=== PATIENT | female | born 1995 | race Caucasian/White ===

== ENCOUNTER 2023-12-28 11:11 | Emergency (ER) | payer OTHER ==
[~2023-12-28] VITALS: Ht 165.1 cm; Wt 70.0 kg
[2023-12-28 11:14] VITALS: TEMP 98.2; O2SAT 97
[2023-12-28 12:15] VITALS: BP 151/106; PULSE 125; RESP 18
[2023-12-28] MEDS: LIDOCAINE HCL/PF 1% 10 MG/ML 5ML VIAL INFIL ONE (12:15)
[2023-12-28] MEDS: BACITRACIN ZINC OINT UDPKT TOP ONE (12:15)
[2023-12-28] MEDS: TETANUS, DIPHTHERIA, PERTUSSIS VAC/PF 0.5ML (>10YR OLD) IM ONE (12:15)
[2023-12-28] MEDS: IBUPROFEN 600MG TABLET PO ONE (12:15)
== END 2023-12-28 14:00 | disposition home or self-care (01) ==
LOC: ER 11:11
DX: S61.012A Laceration without foreign body of left thumb without damage to nail, initial encounter (principal); F41.9 Anxiety disorder, unspecified; W26.0XXA Contact with knife, initial encounter; Y93.89 Activity, other specified; Y92.89 Other specified places as the place of occurrence of the external cause; Y99.8 Other external cause status
CPT/HCPCS: 99283; 90715; 12002; 90471; J3490